=== PATIENT | male | born 1980 | race Caucasian/White ===

== ENCOUNTER 2021-12-12 19:03 | Emergency (ER) | payer MEDICAID, SELFPAY ==
[~2021-12-12] VITALS: Ht 165.1 cm; Wt 75.0 kg
[2021-12-12] MEDS ORDERED: HYDROCODONE/ACETAMINOPHEN 5-325 MG TABLET PO ONE (19:30)
[2021-12-12 20:32] VITALS: BP 116/74
== END 2021-12-12 20:53 | disposition home or self-care (01) ==
LOC: EMS 19:09
DX: S89.92XA Unspecified injury of left lower leg, initial encounter (principal); X50.1XXA Overexertion from prolonged static or awkward postures, initial encounter; Y93.89 Activity, other specified; Y92.89 Other specified places as the place of occurrence of the external cause; Y99.8 Other external cause status
CPT/HCPCS: 29505; 99283